=== PATIENT | female | born 1985 ===

== ENCOUNTER 2019-04-09 08:06 | Inpatient (IN) | payer OTHER ==
[2019-04-09] MEDS ORDERED: LACTATED RINGERS 1,000 ML ONE (08:40)
[2019-04-09] MEDS ORDERED: LACTATED RINGERS 1,000 ML IV SCH (09:00)
[2019-04-09] MEDS ORDERED: TERBUTALINE 1 MG/1 ML INJ IVP PRN (09:00)
[2019-04-09] MEDS ORDERED: ePHEDrine SULFATE 50 MG/1 ML INJ IV PRN (09:00)
[2019-04-09] MEDS ORDERED: fentaNYL 100 MCG/2 ML INJ IV PRN (09:00)
[2019-04-09] MEDS ORDERED: ONDANSETRON 4 MG/2 ML INJ IV PRN ×2 (09:00→09:39)
[2019-04-09] MEDS ORDERED: PROMETHAZINE 25 MG TAB PO PRN ×2 (09:00→09:39)
[2019-04-09] MEDS ORDERED: LIDOCAINE (2%) 20 MG/1 ML VIAL 20 ML MDV INFILTRATI ONE (09:00)
[2019-04-09] MEDS ORDERED: TERBUTALINE 1 MG/1 ML INJ SUB-Q PRN (09:00)
[2019-04-09] MEDS ORDERED: BUTORPHANOL 2 MG/1 ML INJ IV PRN (09:00)
[2019-04-09] MEDS ORDERED: OXYTOCIN DRIP 30 UNITS/500 ML BAG IV SCH (09:00)
[2019-04-09] MEDS ORDERED: MINERAL OIL 30 ML ORAL LIQD PO PRN (09:00)
--- NOTE | 2019-04-09 09:00 | History and Physical Report ---
History of Present Illness Date of examination: 04/09/19 Date of admission: 04/09/19 08:41 Chief complaint: Labor History of present illness: Pt is a 33yo HF EDC 04/06/19; EGA 40 3/7 weeks presents to L&D complaining of RUC's q 3-4 mins. She received late care at [facility] since 20 weeks and course has been unremarkable except for an abnormal RGS with normal 3 OGTT. records were not available at delivery, and GBS was unknown. Past History Past Medical History: no pertinent history Past Surgical History: no surgical history Family/Genetic History: none Social history: no significant social history, - Obstetrical History Expected Date of Delivery: 04/06/19 Actual Gestation: 40 Week(s) 3 Day(s) Medications and Allergies Allergies Allergy/AdvReac Type Severity Reaction Status Date / Time No Known Allergies Allergy Unverified 04/09/19 10:07 Home Medications Medication Instructions Recorded Confirmed Last Taken Type Vitamin 1 tab PO DAILY 04/09/19 04/09/19 04/08/19 10:00 History 1 Review of Systems All systems: negative - Vital Signs Vital signs: Vital Signs Pulse BP 81 122/77 04/09/19 08:33 04/09/19 08:33 Temp Pulse Resp BP Pulse Ox 81 122/77 04/09/19 08:33 04/09/19 08:33 - Physical Exam Breasts: Positive: deferred Cardiovascular: Regular rate Lungs: Positive: Clear to auscultation Abdomen: Positive: normal appearance Genitourinary (Female): Positive: normal external genitalia Vagina: Positive: normal moisture Uterus: Positive: enlarged Extremities: Positive: normal - Obstetrical FHR: category 1 Uterine Contraction Monitor Mode: External Cervical Dilatation: 8 Cervical Effacement Percentage: 100 station: -2 Uterine Contraction Pattern: Regular Uterine Tone Measurement Phase: Contraction Uterine Contraction Intensity: Moderate Results Result Diagrams: 04/09/19 Unknown All other labs normal. Assessment and Plan - Patient Problems (1) 38 weeks gestation of Onset Date: 04/09/19 Current Visit: Yes Status: Acute (2) 40 weeks gestation of Onset Date: 04/09/19 Current Visit: Yes Status: Acute Plan to address problem: A: IUP @ 40 3/7 weeks in labor Multiparity Unknown GBS P: Admit to L&D for expectant vaginal delivery IV Ampicillin Obtain records.
[2019-04-09 09:25] LABS: Hematocrit 37.7 % (30.3-42.9); Hemoglobin 13.2 gm/dl (10.1-14.3); Mean Corpuscular HGB Conc 35 % (30-34); Mean Corpuscular Volume 90 fl (79-97); Platelet Count 308 K/mm3 (140-440); Red Cell Distribution Width 13.4 % (13.2-15.2)
[2019-04-09] MEDS: OXYTOCIN 20 UNIT/1000ML DRIP 20 UNITS/1,000 ML BAG IV SCH ×2 (09:27→11:11)
--- NOTE | 2019-04-09 09:33 | Procedure Note ---
OB Delivery Note - Delivery Date of Delivery: 04/09/19 Surgeon: DAYANA BENNETT Estimated blood loss: 100cc - Vaginal Delivery presentation: vertex Delivery position: OA Intrapartum events: precipitous labor- <3hr Delivery induction: none Delivery augmentation: rupture of membranes Delivery monitor: external FHT, external uterine Route of delivery: Delivery placenta: spontaneous Delivery cord: 3 umbilical vessels Episiotomy: none Delivery laceration: none Anesthesia: none Delivery comments: delivered OA and placed on Mom's chest for zaey-ky-meza bonding and delayed cord clamping, cut by Dad - Infant A at 1 minute: 9 at 5 minutes: 9 Gender: Female (3366gms)
[2019-04-09] MEDS ORDERED: LANOLIN/ZINC/DIMETHICONE (LANSINOH) 7 GM TP PRN (09:39)
[2019-04-09] MEDS ORDERED: WITCH HAZEL/ GLYCERIN PAD TP PRN (09:39)
[2019-04-09] MEDS ORDERED: diphenhydrAMINE 25 MG CAP PO PRN (09:39)
[2019-04-09] MEDS ORDERED: MAGNESIUM HYDROXIDE (MOM) ORAL LIQD UDC PO PRN (09:39)
[2019-04-09] MEDS ORDERED: PROMETHAZINE 25 MG RECT SUPP PR PRN (09:39)
[2019-04-09] MEDS ORDERED: ACETAMINOPHEN 325 MG TAB PO PRN (09:39)
[2019-04-09] MEDS ORDERED: OXYTOCIN 20 UNIT/1000ML DRIP 20 UNITS/1,000 ML BAG IV SCH (10:00)
[2019-04-09] MEDS ORDERED: AMPICILLIN/NS 2 GM/100 ML 2 GM/100 ML BAG IV ONE (10:00)
[2019-04-09] MEDS ORDERED: AMPICILLIN/NS 1 GM/50 ML 1 GM/50 ML BAG IV SCH (14:00)
[2019-04-09] MEDS ORDERED: FLU VACC QUAD 2019-20 (3 YR UP)/PF 60 MCG/0.5 ML SYRINGE IM ONE (18:24)
[2019-04-09] MEDS: IBUPROFEN 600 MG TAB PO SCH (18:35)
[2019-04-09 23:02] LABS: Hematocrit 33.9 % (30.3-42.9); Hemoglobin 11.6 gm/dl (10.1-14.3)
[2019-04-10] MEDS: HYDROcodone/ACETAMINOPHEN 5-325 MG TAB PO PRN (03:19)
[2019-04-10] MEDS: IBUPROFEN 600 MG TAB PO SCH ×3 (06:37→22:41)
[2019-04-10] MEDS: FERROUS SULFATE 325 MG TAB PO SCH ×2 (08:58→22:41)
[2019-04-10] MEDS: PRENATAL VIT27-FE FUMARATE-FOLIC ACID VIT TAB PO SCH (08:59)
[2019-04-10] MEDS ORDERED: MEASLES, MUMPS & RUBELLA 12,500 UNIT/0.5 ML VACCINE SUB-Q ONE (09:39)
[2019-04-10] MEDS ORDERED: TETANUS,DIPH,PERTUSS(ACELL) VACCINE 0.5 ML SYRINGE IM ONE (09:39)
--- NOTE | 2019-04-10 10:47 | Progress Note ---
Assessment and Plan - Patient Problems (1) 38 weeks gestation of Onset Date: 04/09/19 Current Visit: Yes Status: Resolved (2) 40 weeks gestation of Onset Date: 04/09/19 Current Visit: Yes Status: Resolved (3) (normal spontaneous vaginal delivery) Onset Date: 04/10/19 Current Visit: Yes Status: Resolved Plan to address problem: A: S/P - PPD #1 Doing well Asymptomatic anemia - stable P: May go home tomorrow. Subjective - Subjective Date of service: 04/10/19 Principal diagnosis: s/p - PPD #1 Interval history: Pt is feeling well without complaints. Bleeding improved. Patient reports: appetite normal, voiding normally, pain well controlled, flatus, ambulating normally, no dizzy ambulation, no nauseated : doing well, nursing well Objective - Vital Signs Latest vital signs: Vital Signs Temp Pulse Resp BP BP Pulse Ox 04/10/19 08:26 97.4 F L 68 18 105/46 04/10/19 04:30 98.6 F 78 16 99/74 04/10/19 00:00 98.6 F 67 16 98/66 04/09/19 20:00 98.6 F 64 18 104/40 04/09/19 16:18 98.6 F 75 18 100/58 98 04/09/19 11:38 72 62 L 04/09/19 11:27 76 100 04/09/19 11:22 75 98 04/09/19 11:17 74 98 04/09/19 11:12 77 98 04/09/19 11:07 74 98 04/09/19 11:02 81 98 04/09/19 10:57 72 98 04/09/19 10:52 74 97 04/09/19 10:47 67 98 Intake and Output 04/09/19 04/10/19 04/10/19 22:59 06:59 14:59 Intake Total 540 540 480 Output Total 400 Balance 140 540 480 Intake: Oral 240 240 480 Intake, Free Water 300 300 Output: Urine 400 Void 400 Other: Total, Intake Amount 240 240 480 Total, Output Amount 400 # Voids Void 1 - Exam Breasts: Present: deferred Abdomen: Present: normal appearance, soft Uterus: Present: normal, firm, fundal height below umbilicus Extremities: Present: normal
[2019-04-11] MEDS: IBUPROFEN 600 MG TAB PO SCH ×3 (04:39→16:47)
[2019-04-11] MEDS: FERROUS SULFATE 325 MG TAB PO SCH (09:30)
[2019-04-11] MEDS: HYDROcodone/ACETAMINOPHEN 5-325 MG TAB PO PRN (09:30)
[2019-04-11] MEDS: PRENATAL VIT27-FE FUMARATE-FOLIC ACID VIT TAB PO SCH (09:30)
--- NOTE | 2019-04-11 10:21 | Discharge Summary ---
Providers - Providers Date of Admission: 04/09/19 08:41 Date of discharge: 04/11/19 Attending physician: DAYANA BENNETT Primary care physician: PRE CERTIFICATION SPECIALIST Hospitalization Reason for admission: active labor, IUP at term Delivery: Episiotomy: none Laceration: none Incision: normal Other procedures: none complications: none Discharge diagnosis: IUP at term delivered [place] baby: female Hospital course: Unremarkable. Condition at discharge: Good Disposition: DC-01 TO HOME OR SELFCARE - Discharge Diagnoses (1) 38 weeks gestation of Status: Resolved (2) 40 weeks gestation of Status: Resolved (3) (normal spontaneous vaginal delivery) Status: Resolved Plan - Discharge Medications Prescriptions: Ferrous Sulfate [Feosol 325 MG tab] 325 mg PO BID #60 tablet Ibuprofen [Motrin 600 MG tab] 600 mg PO Q6H #30 tablet Vit-Fe Fumar-FA [ Vitamin] 1 each PO QDAY #30 tablet - Provider Discharge Summary Activity: routine, no sex for 6 weeks, no heavy lifting 4 weeks, no strenuous exercise Diet: routine Instructions: routine Additional instructions: [] Smoking cessation referral if applicable(refer to patient education folder for contact #) [] Refer to [facility] Book[facility] Call your doctor immediately for: * Fever > 100.5 * Heavy vaginal bleeding ( >1 pad per hour) * Severe persistent headache * Shortness of breath * Reddened, hot, painful area to leg or breast * Drainage or odor from incision. * Keep incision clean and dry at all times and follow doctor's instructions regarding bathing/showering - Follow up plan Follow up: KAIT IBRAHIM MD [Primary Care Provider] - 7 Days DAYANA BENNETT MD [Staff Physician] - 6 Weeks Forms: [facility] Discharge Summary
[2019-04-11 16:55] VITALS: BP 113/60
== END 2019-04-11 16:49 | disposition home or self-care (01) | DRG 807 ==
LOC: TRG 08:06 → LD 08:41 → OB 12:09
PROVIDERS: ADMIT Obstetrics & Gynecology; ATTEND Obstetrics & Gynecology
PROC: 10E0XZZ Delivery of Products of Conception, External Approach (ICD-10-PCS; principal; 2019-04-09)
PROC: 3E0234Z Introduction of Serum, Toxoid and Vaccine into Muscle, Percutaneous Approach (ICD-10-PCS; 2019-04-11)
DX: O62.3 Precipitate labor (principal); Z37.0 Single live birth; O90.81 Anemia of the puerperium; D64.9 Anemia, unspecified; Z23 Encounter for immunization; Z3A.40 40 weeks gestation of pregnancy
CPT/HCPCS: 36415; 85014; 85018; 85027; 86706; 86762; 86850; 86900; 86901; 90471; 90686; G0378; J2590; J7120

== ENCOUNTER 2020-06-08 05:09 | Inpatient (IN) | payer OTHER ==
[2020-06-08] MEDS ORDERED: OXYTOCIN DRIP 30,000 MILLIUNITS/500 ML BAG IV ONE (05:46)
[2020-06-08] MEDS ORDERED: LACTATED RINGERS 1,000 ML ONE (05:46)
[2020-06-08] MEDS ORDERED: OXYTOCIN 10 UNIT/1 ML INJ ONE (05:55)
[2020-06-08] MEDS ORDERED: miSOPROStol 200 MCG TAB ONE (05:59)
[2020-06-08] MEDS ORDERED: LIDOCAINE (2%) 20 MG/1 ML VIAL 20 ML MDV INFILTRATI ONE ×2 (06:02→07:08)
[2020-06-08] MEDS ORDERED: METHYLERGONOVINE MALEATE 0.2 MG/ML VIAL IM ONE (06:15)
[2020-06-08] MEDS ORDERED: AMPICILLIN/NS 2 GM/100 ML 2 GM/100 ML BAG IV ONE (07:08)
[2020-06-08] MEDS ORDERED: TERBUTALINE 1 MG/1 ML INJ SUB-Q PRN (07:08)
[2020-06-08] MEDS ORDERED: ePHEDrine SULFATE 50 MG/1 ML INJ IV PRN (07:08)
[2020-06-08] MEDS ORDERED: diphenhydrAMINE 25 MG CAP PO PRN (07:12)
[2020-06-08] MEDS ORDERED: PROMETHAZINE 25 MG RECT SUPP PR PRN (07:12)
[2020-06-08] MEDS ORDERED: ONDANSETRON 4 MG/2 ML INJ IV PRN (07:12)
[2020-06-08] MEDS ORDERED: WITCH HAZEL/ GLYCERIN PAD TP PRN (07:12)
[2020-06-08] MEDS ORDERED: PROMETHAZINE 25 MG TAB PO PRN (07:12)
[2020-06-08] MEDS ORDERED: LACTATED RINGERS 1,000 ML IV SCH (07:15)
--- NOTE | 2020-06-08 07:22 | History and Physical Report ---
History of Present Illness Date of examination: 06/08/20 Date of admission: 06/08/20 Chief complaint: c/o uc since last night History of present illness: 34 y/o female presents to ob triage at unknown gestation with c/o uc since last night. She denies LOF or VB, but admits to active FM. Pt states she initiated her pnc at [facility]. Pt is not sure how many wks she was and there are no records available. She states this preg and previous pregnancies have been w/o complications. Medical/surgical/social/family hx is unremarkable per pt. Pt was found to be at 9cms and was admitted to L&D for delivery. Communicated with pt per hospital tankroom tender services. Past History Past Medical History: no pertinent history Past Surgical History: no surgical history Family/Genetic History: none Social history: no significant social history - Obstetrical History : 10 Para: 8 Hx # Term Pregnancies: 8 Induced : 1 Number of Living Children: 8 Medications and Allergies Allergies Allergy/AdvReac Type Severity Reaction Status Date / Time No Known Allergies Allergy Unverified 04/09/19 10:07 Home Medications Medication Instructions Recorded Confirmed Last Taken Type Vitamin 1 tab PO DAILY 04/09/19 04/09/19 04/08/19 10:00 History 1 Ferrous Sulfate [Feosol 325 MG tab] 325 mg PO BID #60 tablet 04/11/19 Unknown Rx Ibuprofen [Motrin 600 MG tab] 600 mg PO Q6H #30 tablet 04/11/19 Unknown Rx Vit-Fe Fumar-FA [ 1 each PO QDAY #30 tablet 04/11/19 Unknown Rx Vitamin] Active Meds: Active Medications Bisacodyl (Bisacodyl 10 Mg Rect Supp) 10 mg SD BID PRN PRN Reason: Constipation Diphenhydramine HCl (Diphenhydramine 25 Mg Cap) 25 mg PO Q6H PRN PRN Reason: Itching Ephedrine Sulfate (Ephedrine Sulfate 50 Mg/1 Ml Inj) 10 mg IV Q2M PRN PRN Reason: Hypotension Oxytocin/Sodium Chloride (Pitocin/Ns 30 Unit/500ml) 30 units in 500 mls @ 2 mls/hr IV TITR RASHEED; Protocol Lactated Ringer's (Lactated Ringers) 1,000 mls @ 125 mls/hr IV DIRECT RASHEED Ampicillin Sodium (Ampicillin/Ns 1 Gm/50 Ml) 1 gm in 50 mls @ 100 mls/hr IV Q4H RASHEED; Protocol Ampicillin Sodium (Ampicillin/Ns 2 Gm/100 Ml) 2 gm in 100 mls @ 100 mls/hr IV ONCE ONE; Protocol Stop: 06/08/20 08:07 Ibuprofen (Ibuprofen 600 Mg Tab) 600 mg PO Q6H RASHEED Lidocaine (Lidocaine (2%) 20 Mg/1 Ml Vial 20 Ml Mdv) 20 ml INFILTRATI ONCE ONE Stop: 06/08/20 07:09 Magnesium Hydroxide (Magnesium Hydroxide (Mom) Oral Liqd Udc) 30 ml PO HS PRN PRN Reason: Constipation Mineral Oil (Mineral Oil 30 Ml Oral Liqd) 30 ml PO QHS PRN PRN Reason: Constipation Multi-Ingredient Ointment (Lanolin/Zinc/Dimethicone (Lansinoh) 7 Gm) 1 applic TP PRN PRN PRN Reason: Sore Nipples Ondansetron HCl (Ondansetron 4 Mg/2 Ml Inj) 4 mg IV Q8H PRN PRN Reason: Nausea And Vomiting Promethazine HCl (Promethazine 25 Mg Rect Supp) 25 mg SD Q6H PRN PRN Reason: Nausea And Vomiting Promethazine HCl (Promethazine 25 Mg Tab) 25 mg PO Q6H PRN PRN Reason: Nausea And Vomiting Sodium Chloride (Sodium Chloride 0.9% 10 Ml Flush Syringe) 10 ml IV PRN NR Terbutaline Sulfate (Terbutaline 1 Mg/1 Ml Inj) 0.25 mg SUB-Q ONCE PRN PRN Reason: Hyperstimulation/Hypertonicity Witch Joanne/Glycerin (Witch Joanne/ Glycerin Pad) 1 each TP PRN PRN PRN Reason: Hemorrhoid/cleansing/soothing Review of Systems All systems: negative Eyes: deferred Ears, nose, mouth and throat: deferred Breasts: normal Genitourinary: normal appearance Rectal Exam: normal exam-external/orifice - Vital Signs Vital signs: Vital Signs Temp 98.3 F 06/08/20 05:26 Temp Pulse Resp BP Pulse Ox 98.3 F 90 119/79 06/08/20 05:26 06/08/20 07:11 06/08/20 07:11 - Physical Exam Breasts: Positive: normal Abdomen: Positive: normal appearance, soft, normal bowel sounds Genitourinary (Female): Positive: normal external genitalia, normal perenium Vulva: both: normal Vagina: Positive: normal moisture Uterus: Positive: enlarged, normal contour, other (gravid) Adnexa: both: normal Anus/Rectum: Positive: normal perianal skin Extremities: Positive: normal - Obstetrical FHR: auscultation normal, category 1 Uterine Contraction Monitor Mode: External Cervical Dilatation: 9 (per nurse) Cervical Effacement Percentage: 100 station: 0 Uterine Contraction Pattern: Regular Uterine Tone Measurement Phase: Resting Uterine Contraction Intensity: Strong/Firm Results All other labs normal. Assessment and Plan A: Unknown gestation GBS status unknown No records P: Admit to L&D GBS prophylaxis Notify NICU Obtain pnr in am Anticipate
[2020-06-08 07:23] LABS: Hematocrit 35.4 % (30.3-42.9); Hemoglobin 12.1 gm/dl (10.1-14.3); Mean Corpuscular HGB Conc 34 % (30-34); Mean Corpuscular Volume 87 fl (79-97); Platelet Count 221 K/mm3 (140-440); Red Blood Count 4.05 M/mm3 (3.65-5.03); Red Cell Distribution Width 14.2 % (13.2-15.2)
[2020-06-08] MEDS ORDERED: LANOLIN/ZINC/DIMETHICONE (LANSINOH) 7 GM TP PRN (07:30)
--- NOTE | 2020-06-08 07:44 | Procedure Note ---
OB Delivery Note - Delivery Date of Delivery: 06/08/20 Surgeon: HAN MARSHALL Estimated blood loss: 200cc - Vaginal Delivery presentation: vertex Delivery position: OA Intrapartum events: precipitous labor- <3hr Delivery induction: none Delivery monitor: external FHT, external uterine Route of delivery: Delivery placenta: spontaneous Delivery cord: nuchal cord, 3 umbilical vessels, other (body cord) Delivery laceration: 1st degree, other (perineal) Delivery repair: vicryl Anesthesia: local Delivery comments: Called to for delivery. SVE 10/100%/+1 and pt was laying on the stretcher pushing. of a viable live male . Loose nuchal was reduced over infant's head then head and shoulders were delivered with ease. Body cord was unraveled after delivery and infant was placed on mom's chest for skin to skin bonding while NICU nurse dried and stimulated baby. After 90 sec of delayed cord clamping, the cord was clamped x 2 and the FOB was allowed to cut the cord. Infant was taken to the warmer by NICU nurse for an asses. 7/9. Spontaneous delivery of an intact placenta with 3VC. Fundus was boggy off and on @ U2 with trickling of blood. Homeostasis was maintained with fundal massage, IV Pitocin, Cytotec 800 mcg AK, and Methergine IM. An exploration of tears revealed a 1st degree perineal laceration which was repaired with a 3-[address]-1. Cord blood was obtained. EBL 200cc. FW 4181 Gms. Mom and baby was left in stable condition with nurse. - Infant A at 1 minute: 7 at 5 minutes: 9 Infant Gender: Male
[2020-06-08] MEDS ORDERED: OXYTOCIN DRIP 30 UNITS/500 ML BAG IV SCH (08:00)
[2020-06-08] MEDS ORDERED: AMPICILLIN/NS 1 GM/50 ML 1 GM/50 ML BAG IV SCH (11:10)
--- NOTE | 2020-06-08 12:10 | Progress Note ---
Assessment and Plan A: day of delivery S/P vaginal . Uterine tenderness and fever at delivery (no fever now). Right leg pain. P: Coronavirus test pending; appropriate precautions to be taken as results are pending and pt. had a fever earlier this morning. CBC with diff, urinalysis, urine culture ordered. IV Ampicillin and Gentamicin started. Venous doppler US of right leg. Will consult with re: this patient. Informed patient's nurse that she will be PUI until negative coronavirus test result obtained. Subjective - Subjective Date of service: 06/08/20 Principal diagnosis: day of delivery S/P vaginal delivery Interval history: Patient had fever at delivery. Patient denies chills, cough, shortness of breath, or body aches. Reports uterine tenderness and right leg pain. Reports small amount of lochia. Patient reports: appetite normal, voiding normally, flatus, ambulating normally, no dizzy ambulation, no nauseated : doing well Objective - Vital Signs Latest vital signs: Vital Signs Temp Pulse Resp BP 06/08/20 08:30 99.1 F 06/08/20 07:56 76 121/65 06/08/20 07:41 80 117/64 06/08/20 07:27 100.4 F H 82 16 06/08/20 07:26 82 121/64 06/08/20 07:11 90 119/79 06/08/20 06:56 94 H 127/73 06/08/20 06:41 81 127/76 06/08/20 06:28 77 122/70 06/08/20 06:27 90 130/71 06/08/20 06:14 86 138/63 06/08/20 05:27 98 H 121/86 06/08/20 05:26 98.3 F Intake and Output 06/07/20 06/08/20 06/08/20 23:59 07:59 15:59 Other: Weight 68.039 kg Patient Weight 06/08/20 23:59 Weight 68.039 kg - Exam Cardiovascular: Present: Regular rate Lungs: Present: Clear to auscultation Abdomen: Present: normal appearance, soft, normal bowel sounds. Absent: dist ention, guarding, rigidity Uterus: Present: firm, tenderness, fundal height above umbilicus. Absent: bogginess Extremities: Present: tenderness (right leg pain)
[2020-06-08] MEDS ORDERED: GENTAMICIN 100 MG in SODIUM CHLORIDE 0.9% 100 ML IV SCH (12:30)
--- NOTE | 2020-06-08 13:18 | Vascular Lab Report ---
DUPLEX DOPPLER LOWER EXTREMITY VEINS, RIGHT INDICATION / CLINICAL INFORMATION: Right leg pain, . TECHNIQUE: Duplex doppler imaging was performed through the veins of the right lower extremity using venous comp ression and other maneuvers. COMPARISON: None available. FINDINGS: RIGHT COMMON FEMORAL VEIN: Negative. RIGHT FEMORAL VEIN: Negative. RIGHT POPLITEAL VEIN: Negative. RIGHT CALF VEINS: Negative. ADDITIONAL FINDINGS: None. IMPRESSION: 1. No sonographic evidence for DVT in the right lower extremity. Signer Name: Link Francis MD Signed: 06/08/2020 1:09 PM Workstation Name: [id number]
[2020-06-08] MEDS: AMPICILLIN/NS 2 GM/100 ML 2 GM/100 ML BAG IV SCH ×2 (13:34→19:47)
[2020-06-08] MEDS: GENTAMICIN/NS 100 MG/100 ML 100 MG/100 ML BAG IV SCH ×2 (14:18→22:15)
[2020-06-08 15:24] LABS: Basophils # (Auto) 0.1 K/mm3 (0.0-0.1); Basophils % (Auto) 0.6 % (0.0-1.8); Eosinophils # (Auto) 0.1 K/mm3 (0.0-0.4); Eosinophils % (Auto) 1.4 % (0.0-4.3); Hematocrit 31.9 % (30.3-42.9); Hemoglobin 11.1 gm/dl (10.1-14.3); Lymphocytes % (Auto) 20.2 % (13.4-35.0); Mean Corpuscular HGB Conc 35 % (30-34); Mean Corpuscular Volume 86 fl (79-97); Monocytes # (Auto) 0.6 K/mm3 (0.0-0.8); Monocytes % (Auto) 5.7 % (0.0-7.3); Platelet Count 210 K/mm3 (140-440); Red Blood Count 3.71 M/mm3 (3.65-5.03); Red Cell Distribution Width 14.2 % (13.2-15.2)
[2020-06-08 15:28] LABS: Mucus,Urine FEW /HPF
[2020-06-08 15:37] LABS: Bilirubin,Urine NEG (Negative); Blood,Urine NEG (Negative); Color,Urine Yellow (Yellow); Protein,Urine <15 mg/dL mg/dL (Negative); Urobilinogen,Urine < 2.0 mg/dL (<2.0)
[2020-06-08 15:41] LABS: Alanine Aminotransferase 9 units/L (7-56); Albumin 2.9 g/dL (3.9-5); Blood Urea Nitrogen 7 mg/dL (7-17); Calcium 8.3 mg/dL (8.4-10.2); Hemolysis Index 4
[2020-06-08 15:42] LABS: BUN/Creatinine Ratio 18
--- NOTE | 2020-06-08 19:06 | Event Note ---
Date: 06/08/20 Spoke with patient re: slightly low potassium. Patient does not want supplement, states will eat bananas and drink gatorade. Will recheck potassium again tomorrow.
[2020-06-08] MEDS: IBUPROFEN 600 MG TAB PO SCH (19:46)
[2020-06-08] MEDS ORDERED: MAGNESIUM HYDROXIDE (MOM) ORAL LIQD UDC PO PRN (22:00)
[2020-06-08] MEDS ORDERED: MINERAL OIL 30 ML ORAL LIQD PO PRN (22:00)
[2020-06-09] MEDS: IBUPROFEN 600 MG TAB PO SCH ×5 (02:00→20:00)
[2020-06-09] MEDS: AMPICILLIN/NS 2 GM/100 ML 2 GM/100 ML BAG IV SCH (02:26)
[2020-06-09] MEDS: GENTAMICIN/NS 100 MG/100 ML 100 MG/100 ML BAG IV SCH (05:05)
--- NOTE | 2020-06-09 05:54 | Progress Note ---
Assessment and Plan A: day 1 S/P . P: Recheck potassium this afternoon. Encouraged ambulation. Subjective - Subjective Date of service: 06/09/20 Principal diagnosis: day 1 S/P Interval history: Right LE venous doppler negative. Patient is afebrile. Antibiotics have been stopped. Have ordered repeat potassium level for this afternoon. Patient reports: appetite normal, voiding normally, pain well controlled, flatus, ambulating normally, no dizzy ambulation, no nauseated : doing well Objective - Vital Signs Latest vital signs: Vital Signs Temp Pulse Resp BP BP Pulse Ox 06/09/20 00:01 98.0 F 69 20 97/62 98 06/08/20 16:50 98.0 F 82 18 106/55 98 06/08/20 12:31 97.6 F 74 18 111/63 97 06/08/20 09:10 98.2 F 80 18 119/66 06/08/20 08:30 99.1 F 06/08/20 07:56 76 121/65 06/08/20 07:41 80 117/64 06/08/20 07:27 100.4 F H 82 16 06/08/20 07:26 82 121/64 06/08/20 07:11 90 119/79 06/08/20 06:56 94 H 127/73 06/08/20 06:41 81 127/76 06/08/20 06:28 77 122/70 06/08/20 06:27 90 130/71 06/08/20 06:14 86 138/63 Intake and Output 06/08/20 06/08/20 06/09/20 15:59 23:59 07:59 Intake Total 200 200 240 Output Total 800 300 400 Balance -600 -100 -160 Intake: IV 200 200 AMPICILLIN/NS 2 GM/100 ML 100 100 2 gm In 100 ml @ 100 mls /hr IV Q6H RASHEED Rx#: [id number] GENTAMICIN/NS 100 MG/100 100 100 ML 100 mg In 100 ml @ 200 mls/hr IV Q8H RASHEED Rx#: [id number] Oral 240 Output: Urine 800 300 400 Indwelling Catheter 800 Void 300 400 Other: Total, Intake Amount 240 Total, Output Amount 800 300 400 # Voids Indwelling Catheter 1 Void 1 1 2 - Exam Cardiovascular: Present: Regular rate Lungs: Present: Clear to auscultation Abdomen: Present: normal appearance, soft. Absent: distention, tenderness, g uarding, rigidity Uterus: Present: normal, firm, fundal height below umbilicus. Absent: bogginess, tenderness Extremities: Present: normal. Absent: tenderness, edema - Labs Labs: Abnormal lab results 06/08/20 06/08/20 Range/Units 14:34 14:34 MCHC 35 H (30-34) % Seg Neutrophils % 72.1 H (40.0-70.0) % Sodium 136 L (137-145) mmol/L Potassium 3.4 L (3.6-5.0) mmol/L Creatinine 0.4 L (0.6-1.2) mg/dL Glucose 122 H (65-100) mg/dL Calcium 8.3 L (8.4-10.2) mg/dL Alkaline Phosphatase 165 H (35-129) units/L Total Protein 5.8 L (6.3-8.2) g/dL Albumin 2.9 L (3.9-5) g/dL
[2020-06-10] MEDS: IBUPROFEN 600 MG TAB PO SCH ×2 (02:00→05:27)
--- NOTE | 2020-06-10 09:55 | Progress Note ---
Assessment and Plan A: day 1 S/P . P: Discharge patient home today. Discussed with patient discharge instructions and warning signs. Advised patient to continue taking her vitamins at home. Advised patient to avoid intercourse, lifting, heavy housework. Advised patient to follow up at [facility] RN clinic in 6 weeks. Patient voiced understanding of all instructions. Subjective - Subjective Date of service: 06/10/20 Principal diagnosis: day 2 S/P Interval history: Right LE venous doppler negative. Right leg pain has resolved. Potassium now normal. Patient desires discharge home today. Patient reports: appetite normal, voiding normally, pain well controlled, flatus, ambulating normally, no dizzy ambulation, no nauseated : doing well Objective - Vital Signs Latest vital signs: Vital Signs Temp Pulse Resp BP Pulse Ox 06/10/20 08:04 97.8 F 95 H 20 114/77 98 06/09/20 23:11 98.2 F 78 20 107/59 97 06/09/20 17:20 98.3 F 74 18 103/57 96 Intake and Output 06/09/20 06/10/20 06/10/20 23:59 07:59 15:59 Intake Total 1320 240 Balance 1320 240 Intake: Oral 720 240 Intake, Free Water 600 Other: Total, Intake Amount 240 240 # Voids Void 1 1 # Bowel Movements 1 - Exam Cardiovascular: Present: Regular rate Lungs: Present: Clear to auscultation Abdomen: Present: normal appearance, soft, normal bowel sounds. Absent: distention, tenderness, guarding, rigidity Uterus: Present: normal, firm, fundal height below umbilicus. Absent: boggi ness, tenderness Extremities: Present: normal, edema (bilateral pedal edema; no generalized edema). Absent: tenderness
--- NOTE | 2020-06-10 09:58 | Discharge Summary ---
Providers - Providers Date of Admission: 06/08/20 07:16 Date of discharge: 06/10/20 Attending physician: CHRISTINA CHANEY Primary care physician: CHRISTINA CHANEY Hospitalization Reason for admission: active labor Delivery: Episiotomy: none Laceration: 1st degree Other procedures: none complications: none Discharge diagnosis: IUP at term delivered baby: male Pertinent studies: Labs Hospital course: Stable hospital course. Condition at discharge: Good Disposition: DC-01 TO HOME OR SELFCARE - Discharge Diagnoses (1) Term delivered Status: Acute Plan - Provider Discharge Summary Activity: routine, no sex for 6 weeks, no heavy lifting 4 weeks, no strenuous exercise Diet: routine Instructions: routine Additional instructions: Continue taking your vitamin at home. Call your doctor immediately for: * Fever > 100.5 * Heavy vaginal bleeding ( >1 pad per hour) * Severe persistent headache * Shortness of breath * Reddened, hot, painful area to leg or breast - Follow up plan Follow up: [facility] [Referring] - 6 Weeks
[2020-06-10 12:18] VITALS: BP 111/65
== END 2020-06-10 13:50 | disposition home or self-care (01) | DRG 807 ==
LOC: TRG 05:09 → APU 05:22 → TRG 07:08 → LD 07:16 → OB 09:22
PROVIDERS: ADMIT Obstetrics & Gynecology; ATTEND Obstetrics & Gynecology
PROC: 0HQ9XZZ Repair Perineum Skin, External Approach (ICD-10-PCS; principal; 2020-06-08)
PROC: 10E0XZZ Delivery of Products of Conception, External Approach (ICD-10-PCS; 2020-06-08)
DX: O70.0 First degree perineal laceration during delivery (principal); Z37.0 Single live birth; Z3A.00 Weeks of gestation of pregnancy not specified; Z20.822 Contact with and (suspected) exposure to COVID-19
CPT/HCPCS: 36415; 59025; 80053; 81001; 84132; 85025; 85027; 86592; 86706; 86762; 86850; 86900; 86901; 87086; 87806; 96360; G0378; J0290; J1580; J2210; J2590; J7120; U0003